=== PATIENT | male | born 1950 | race Caucasian/White ===

== ENCOUNTER 2016-08-19 21:18 | Emergency (ER) | payer OTHER | END 2016-08-20 00:23 | disposition home or self-care (01) | LOC: ER 21:18 | DX: R07.2 Precordial pain (principal); I10 Essential (primary) hypertension; E78.00 Pure hypercholesterolemia, unspecified; Z90.49 Acquired absence of other specified parts of digestive tract; Z79.899 Other long term (current) drug therapy; Z88.5 Allergy status to narcotic agent | CPT/HCPCS: 36415; 96361; 96374 ==